=== PATIENT | female | born 1985 | race Caucasian/White ===

== ENCOUNTER 2016-03-08 02:48 | Emergency (ER) | payer OTHER ==
[2016-03-08 02:54] VITALS: BMI 47.5
[2016-03-08 03:17] LABS: AUTOMATED BASOPHIL 0.4 % (0-2); AUTOMATED EOSINOPHIL 2.2 % (0-5); AUTOMATED LYMPH 36.9 % (17-44); AUTOMATED MONOCYTE 8.5 % (3-10); MPV 7.7 fL (7.4-10.4)
[2016-03-08 03:29] LABS: BLOOD UREA NITROGEN 12 MG/DL (7-17); CALCIUM 9.1 MG/DL (8.4-10.2); CALCULATED OSMOLALITY 272 MOs/Kg (270-290); CHLORIDE 106 mEq/L (98-107); GLUCOSE 88 MG/DL (70-99); SODIUM LEVEL 142 mEq/L (137-146); TOTAL PROTEIN 8.2 G/DL (6.3-8.2)
--- NOTE | 2016-03-08 03:32 | EDPRACDOC ---
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 NO SHOB. NOT EXERTIONAL. ALSO FELT LIGHTHEADED. FAMILY HX OF CAD. OTHER RISK FACTORS NEG. Symptoms Started: Reports: Gradually Weakness: Bilateral: Generalized Symptoms: Reports: Weak Associated signs and symptoms:: Reports: None Other History: SOME INTERMITTENT CHEST DISCOMFORT; NO SHOB. SOME MYALGIAS AND NAUSEA. NO RISK FACTORS EXCEPT FAMILY HX ED Past Medical History - History Reviewed Yes Nurses notes reviewed and agree except as marked - Patient Medical History Neurological History: Denies: Seizures, Migraine Cardiac History: Reports: Congestive Heart Failure (WITH ). Denies: Hypertension Respiratory History: Denies: Asthma GI/ History: Reports: Urinary Tract Infection Psychological History: Reports: Depression (medicated). Denies: Anxiety Systemic History: Reports: Anemia, Hypothyroidism. Denies: Cancer, Diabetes Surgical History: Reports: Other (TUBAL LIGATION). Denies: Hysterectomy - Family Medical History Reports: Hypertension (MGM), Diabetes (MM, MGM), Cancer (MM), Cardiac Disorders (MM, MGM, PGM,). Denies: Stroke - Social Medical History Smoking Status: Never smoker EDM Review of Systems - Review of Systems ROS Negative Except as Marked: Yes All systems reviewed and were negative except as marked - Physical Exam Constitutional: Alert (Awake), No apparent distress Oriented to: Time, Person, Place Last recorded Vital Signs: Last Vital Signs Temp 99.3 F 03/08/16 03:03 Pulse 74 03/08/16 03:03 Resp 20 03/08/16 03:03 BP 142/85 03/08/16 03:03 Pulse Ox 98 03/08/16 03:03 Oxygen Pulse Oxygen Saturation 98 O2 Device Room Air Oxygen Flow Rate Fraction of Inspired Oxygen ( FIO2) - HEENT Head: Normal ( normocephalic) Eye Exam: Normal (PERRL, EOMI, Sclera white) Oropharynx: Normal (Pharynx:Moist without exudate,Gums-no swelling) Tympanic Membrane: Normal ENT EAC: Normal TMJ: Normal Nose: No Symptoms Reported (septum midline) Neck: Normal (FROM, trachea at midline) - Respiratory/Cardiovascular Respiratory: Normal - CTA (BBS clear to auscultation without adventitious sounds ) Cardiovascular: Normal (RRR without murmur, gallop or rub) - GI Auscultation: Normal (NABS) Palpation: Normal (Soft,No rebound or guarding, non distended) Tenderness: Non tender Farrell's Sign: Negative - Musculoskeletal Back: Normal (Non-Tender) Extremities: Normal (Normal tone, Pulses 2+ No cyanosis or edema, FROM) - Integumentary Skin: Normal, Warm, Dry Lymphatics: Normal (no adenopathy) - Neurologic Memory Impaired: Normal Motor Function: Normal (Normal tone, Pulses 2+ No cyanosis or edema, FROM) Cranial Nerve: Normal (CN II-X11 intact sensation, strength 5/5) Cerebellar: Normal Mood Description: Normal Perception: Normal - Results 03/08/16 02:54 03/08/16 02:54 WBC 9.6 xk/uL (3.8-10.8) 03/08/16 02:54 RBC 4.55 xM/uL (4.20-5.40) 03/08/16 02:54 Hgb 13.7 g/dL (12.0-16.0) 03/08/16 02:54 Hct 41.0 % (36-47) 03/08/16 02:54 MCV 90 fL (81-99) 03/08/16 02:54 MCH 30.1 pg (27-32) 03/08/16 02:54 MCHC 33.4 g/dl (33-36) 03/08/16 02:54 RDW 14.3 % (11.5-14.5) 03/08/16 02:54 Plt Count 230 xk/uL (130-400) 03/08/16 02:54 MPV 7.7 fL (7.4-10.4) 03/08/16 02:54 Neut % (Auto) 52.0 % (45-76) 03/08/16 02:54 Lymph % (Auto) 36.9 % (17-44) 03/08/16 02:54 [place] % (Auto) 8.5 % (3-10) 03/08/16 02:54 Eos % (Auto) 2.2 % (0-5) 03/08/16 02:54 Baso % (Auto) 0.4 % (0-2) 03/08/16 02:54 Absolute Neuts (auto) 4.99 xk/uL (1.7-8.2) 03/08/16 02:54 Absolute Lymphs (auto) 3.46 xk/uL (0.65-4.75) 03/08/16 02:54 Lab Results 03/08/16 02:54 WBC 9.6 RBC 4.55 Hgb 13.7 Hct 41.0 MCV 90 MCH 30.1 MCHC 33.4 RDW 14.3 Plt Count 230 MPV 7.7 Neut % (Auto) 52.0 Lymph % (Auto) 36.9 [place] % (Auto) 8.5 Eos % (Auto) 2.2 Baso % (Auto) 0.4 Absolute Neuts (auto) 4.99 Absolute Lymphs (auto) 3.46 - EKG EKG #1 [place]: Normal Rhythm: NSR Block: None Hypertrophy: None ST: Normal Decision Time to Discharge: 03:55 - Departure Yes I personally saw and evaluated the patient. Disposition: Home Condition: Good Final Diagnosis: Attacks of weakness, ATYPICAL CP Instructions: Weakness (General) Education/Counseling Given To: Patient Education/Counseling Given Regarding: Diagnosis, Treatment Referrals: Margarita Colon MD [Primary Care Provider] - One Week
[2016-03-08 03:42] VITALS: TEMP 97.3
[2016-03-08 04:23] VITALS: BP 137/68; PULSE 77
== END 2016-03-08 04:16 | disposition home or self-care (01) ==
LOC: ED 02:48
DX: R07.89 Other chest pain (principal); R53.1 Weakness
CPT/HCPCS: 36415; 80053; 85025; 93005; 99284